=== PATIENT | female | born 1950 | race Caucasian/White ===

== ENCOUNTER 2022-01-16 17:35 | Observation (INO) | payer MEDICARE, BC, SELFPAY ==
--- NOTE | 2022-01-16 | CRLHL7_ITS ---
For Patients: As a result of the Century Cures Act, medical imaging exams and procedure reports are released immediately into your electronic medical record. You may view this report before your referring provider. If you have questions, please contact your health care provider. INDICATION: Trauma, fall. Right hip pain. TECHNIQUE: CT pelvis acquired without contrast. COMPARISON: CT abdomen/pelvis dated 08/19/2021. FINDINGS: Within limitations of osteopenia, there is no acute displaced fracture identified. The right hip joint alignment is anatomic. Bladder: Unremarkable for degree of distension. Reproductive organs: Posthysterectomy. Pelvic lymph nodes: No lymphadenopathy. Vessels: Unremarkable for unenhanced study. Abdominal wall: No acute abdominal wall abnormality. IMPRESSION: : No evidence of acute fracture. Please note that all CT scans at this facility use dose modulation, iterative reconstruction, and/or weight-based dosing when appropriate to reduce radiation dose to as low as reasonably achievable. Dictated by Anish Urban MD @ 01/16/2022 8:10:25 PM (Electronically Signed)
[2022-01-16 17:41] VITALS: BP 152/83; PULSE 81; RESP 20; TEMP 36.8; O2SAT 97
--- NOTE | 2022-01-16 17:58 | CRLHL7_ITS ---
For Patients: As a result of the Cures Act, medical imaging exams and procedure reports are released immediately into your electronic medical record. You may view this report before your referring provider. If you have questions, please contact your health care provider. INDICATION: Trauma, fall. TECHNIQUE: CT lumbar spine without contrast. COMPARISON: CT abdomen/pelvis dated 08/19/2021. FINDINGS: Vertebrae: Stable minimal retrolisthesis of L2 on L3, likely secondary to degenerative changes. Stable scattered bone islands and probable vertebral body hemangioma in L2. Within limits of osteopenia, no acute displaced fracture or traumatic malalignment is identified. Discs and facet joints: Extensive multilevel disc and endplate degenerative changes, stable. Extensive bilateral facet arthropathy. Extraspinal findings: Partially visualized liver cyst. Several punctate nonobstructing left renal calculi, unchanged. IMPRESSION: 1. No evidence of acute displaced fracture or traumatic malalignment. 2. Extensive multilevel degenerative changes. Please note that all CT scans at this facility use dose modulation, iterative reconstruction, and/or weight-based dosing when appropriate to reduce radiation dose to as low as reasonably achievable. Dictated by Anish Urban MD @ 01/16/2022 8:01:21 PM (Electronically Signed)
[2022-01-16] MEDS: OXYCODONE 5 MG TABLET PO (19:27)
--- NOTE | 2022-01-16 20:59 | ED.NURSE ---
Pt to bedpan, did pass ~300ml urine.
[2022-01-16 21:00] VITALS: BP 178/92; PULSE 90; O2SAT 94
--- NOTE | 2022-01-16 21:15 | CRLHL7_ITS ---
For Patients: As a result of the Century Cures Act, medical imaging exams and procedure reports are released immediately into your electronic medical record. You may view this report before your referring provider. If you have questions, please contact your health care provider. INDICATION: Fall TECHNIQUE: CT chest, abdomen and pelvis acquired with 64 cc Isovue 370 IV contrast. COMPARISON: CT abdomen pelvis August 19 FINDINGS: Chest: Cardiovascular structures: Heart size is normal. Thoracic aorta and main pulmonary artery are normal in caliber. Mediastinum and moses: No mass or adenopathy. Fluid in the esophagus up to the level of the thoracic inlet. Calcified lymph nodes in the right hilum. Lungs: 1.6 x 0.9 mass in the right upper lobe containing fat density and small foci of calcium, likely a hamartoma. There is also an adjacent cluster of pulmonary nodules measuring up to 4 mm on image 19 series 7. Pleura and pericardium: No effusions. Chest wall and axilla: No mass or adenopathy. Bones: Unremarkable for age. Abdomen and Pelvis: Liver: 2.2 cm simple cyst in the liver. Spleen: Unremarkable. Pancreas: Unremarkable. Gallbladder and bile ducts: Unremarkable. Adrenal glands: Unremarkable. Kidneys: Few subcentimeter hypodensities in both kidneys, too small to accurately characterize. Nonobstructive left nephrolithiasis measuring up to 4.5 mm. GI tract: Moderate amount of stool within colon. Vascular structures: Aortoiliac calcifications. Lymph nodes: Unremarkable. Miscellaneous: Unremarkable. No free air or significant free fluid. Pelvic Organs: Status post hysterectomy. Bones: Unremarkable for age. IMPRESSION: No evidence for acute injury within the abdomen or pelvis. Right upper lobe pulmonary nodules. 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 The other pulmonary nodules are nonspecific. Neoplasm cannot be excluded. Recommend comparison with any prior Chest CT. If no other prior CT available, recommend follow up per Fleischner society guidelines. Fluid in the esophagus up to the level of thoracic inlet suggest GERD. Nonobstructive left nephrolithiasis. Moderate amount of stool in the colon. Status post hysterectomy. Please note that all CT scans at this facility use dose modulation, iterative reconstruction, and/or weight-based dosing when appropriate to reduce radiation dose to as low as reasonably achievable. Dictated by Krystle Deshpande MD @ 01/16/2022 11:49:53 PM (Electronically Signed)
--- NOTE | 2022-01-16 21:15 | CRLHL7_ITS ---
For Patients: As a result of the Cures Act, medical imaging exams and procedure reports are released immediately into your electronic medical record. You may view this report before your referring provider. If you have questions, please contact your health care provider. INDICATION: Trauma, fall. TECHNIQUE: CT thoracic spine without contrast. COMPARISON: None. FINDINGS: Vertebrae: Alignment is normal. There are no fractures or suspicious bony lesions. Discs and facet joints: Disc spaces and facets are within normal limits. Extraspinal findings: Prevertebral soft tissues, visualized airway, and visualized lungs are unremarkable. IMPRESSION: Unremarkable thoracic spine. No sign of acute injury. Please note that all CT scans at this facility use dose modulation, iterative reconstruction, and/or weight-based dosing when appropriate to reduce radiation dose to as low as reasonably achievable. Dictated by Ronni Palacio MD @ 01/16/2022 11:29:17 PM (Electronically Signed)
--- NOTE | 2022-01-16 21:15 | CRLHL7_ITS ---
For Patients: As a result of the Cures Act, medical imaging exams and procedure reports are released immediately into your electronic medical record. You may view this report before your referring provider. If you have questions, please contact your health care provider. INDICATION: Fall with pain. TECHNIQUE: CT cervical spine without contrast. COMPARISON: None. FINDINGS: Vertebrae: Alignment is normal. There are no fractures or suspicious bony lesions. Discs and facet joints: There are diffuse degenerative changes in the disc spaces and facet joints. Extraspinal findings: Paraspinous soft tissues are unremarkable. IMPRESSION: 1. No sign of acute injury. 2. Multilevel degenerative spondylosis. Please note that all CT scans at this facility use dose modulation, iterative reconstruction, and/or weight-based dosing when appropriate to reduce radiation dose to as low as reasonably achievable. Dictated by Ronni Palacio MD @ 01/16/2022 11:32:51 PM (Electronically Signed)
[2022-01-16] MEDS: HYDROmorphone 0.5 mg/0.5 ml inj IVP (21:39)
[2022-01-16 21:53] VITALS: BP 130/67; PULSE 87; O2SAT 93
[2022-01-16 21:57] LABS: Chloride* 104 mmol/L (96-114); Potassium* 4.1 mmol/L (3.6-5.1); Sodium* 136 mmol/L (135-149)
[2022-01-16 22:00] VITALS: BP 130/67; PULSE 90; RESP 18; O2SAT 93
[2022-01-16 22:00] LABS: Blood Urea Nitrogen* 18 mg/dL (7-30); Calcium* 9.4 mg/dL (8.4-10.6); Carbon Dioxide* 27 mmol/L (20-32); Creatinine* 0.7 mg/dL (0.5-1.5); Estimated Glomerular Filt Rate 92 ml/min; Glucose* 127 mg/dL (60-115)
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
[2022-01-16 23:00] VITALS: BP 132/65; PULSE 85; RESP 18; O2SAT 91
[2022-01-17] VITALS (10 sets, daily range): BP systolic 116–141; BP diastolic 59–101; PULSE 76–102; RESP 16–22; TEMP 36.5–36.9; O2SAT 92–97
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
[2022-01-17 00:01] LABS: Basophils Absolute Auto 0.01 K/uL (0.00-0.30); Basophils Percent Auto 0.2 % (0.0-3.0); Eosinophils Absolute Auto 0.02 K/uL (0.00-0.50); Eosinophils Percent Auto 0.3 % (0.0-7.0); Hematocrit 39.6 % (33.0-51.0); Hemoglobin* 13.9 gm/dL (12.0-16.0); Immature Granulocytes Abs Auto 0.07 K/uL (0.00-0.30); Lymphocytes Percent Auto 11.8 % (20-44); Mean Corpuscular HGB Conc 35 gm/dL (32-36); Mean Corpuscular Hemoglobin 33 pg (26-34); Mean Corpuscular Volume 95 fL (80-100); Monocytes Percent Auto 6.9 % (0.0-11.0); Neutrophils Percent Auto 79.7 % (42.0-72.0); Platelet Count* 187 K/uL (140-440); RDW Coefficient of Variation % 12.5 % (11.5-15.5); Red Blood Count 4.19 m/uL (4.00-5.20); White Blood Count* 6.53 K/uL (4.50-11.00)
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
[2022-01-17 00:05] LABS: Slide Review Reflex No
[2022-01-17 00:21] LABS: Albumin* 3.5 g/dL (3.3-5.0)
[2022-01-17 00:23] LABS: INR 0.99 (0.91-1.10); Prothrombin Time 13.4 Seconds
[2022-01-17 00:24] LABS: Aspartate Amino Transferase* 42 U/L (12-35); Bilirubin Direct* 0.2 mg/dL (0.0-0.5); Bilirubin Total* 0.4 mg/dL (0.1-1.5); Partial Thromboplastin Time* 28 Seconds (23-33); Total Protein* 6.3 g/dL (6.0-8.3)
[2022-01-17 00:25] LABS: Alanine Aminotransferase* 25 U/L (4-35); Alkaline Phosphatase* 118 U/L (40-150)
[2022-01-17 00:46] LABS: SARS PCR* Negative SARS-CoV-2 (Negative)
[2022-01-17] MEDS: HYDROmorphone 0.5 mg/0.5 ml inj IVP ×4 (01:44→18:58)
[2022-01-17] MEDS: OXYCODONE 5 MG TABLET PO ×2 (02:19→15:51)
--- NOTE | 2022-01-17 06:38 | PC.NURSE ---
Shift note: Pt unable to speak and provide information for admission. She replies easily to yes and no questions and attempts to speak in sentences. Pt c/o lower back pain, repositioning and pain meds provided by RN with relief and pt was able to rest overnight. Bed floyd used for toileting
[2022-01-17] MEDS: CALCIUM CARBONATE 500 MG TABLET PO (09:00)
[2022-01-17] MEDS: MULTIVITAMIN/MINERALS 1 TABLET 1 TAB PO (09:00)
[2022-01-17] MEDS: OMEPRAZOLE 20 MG CAPSULE DR 40 MG PO (09:00)
[2022-01-17] MEDS: LEVOTHYROXINE 88 MCG TABLET PO (09:00)
[2022-01-17] MEDS: DONEPEZIL 10 MG TABLET PO (09:00)
[2022-01-17] MEDS: ASPIRIN 81 MG TABLET EC PO (09:00)
[2022-01-17] MEDS: FOLIC ACID 1 MG TABLET PO (09:00)
[2022-01-17] MEDS: polyethylene glycoL 3350 17 GM PACK PO (09:01)
[2022-01-17] MEDS: ONDANSETRON 2 MG/ML inj 4 MG IVP (09:38)
--- NOTE | 2022-01-17 10:54 | PM.IMPN1 ---
Progress Note: A&P Assessment and plan (1) Fall: Status: Acute (2) Back pain: Status: Acute (3) Alzheimer's dementia: Status: Acute Plan Rosey will be admitted for pain control and evaluations by our therapy teams. Her fall was significant, and she may require a rehab stay given comorbidities. We will continue her home medications. Plan -PT, OT, SW consult -suspect she will need placement Full code on lovenox for DVT ppx Subjective Date Seen: 01/17/22 Interval history: patient endorses nausea c/o back pain to come to hospital this afternoon unable to obtain ROS d/t communication barrier Exam Narrative: Exam Narrative: Gen: No acute distress HEENT: NCAT EOMI MMM CV: RRR normal s1 s2 Lungs: CTAB Abd: Soft, nt, nd Neuro: alert, appears in baseline state Const: Vital Signs, click to edit/add: Vital Signs - 24 hr 01/16/22 17:41 01/16/22 21:53 01/16/22 21:00 Temperature 98.2 F Pulse Rate [Left P ulse Oximeter] 81 87 90 Respiratory Rate 20 Blood Pressure [Le ft Radial Artery] Blood Pressure [Le ft Upper Arm] 152/83 H 130/67 178/92 H Pulse Oximetry 97 93 94 Oxygen Delivery Me thod Room Air Room Air Room Air 01/17/22 00:21 01/17/22 02:38 01/17/22 02:00 Temperature 97.7 F 97.7 F Pulse Rate [Left P ulse Oximeter] 102 H 80 80 Respiratory Rate 22 22 Blood Pressure [Le ft Radial Artery] 141/81 H 141/81 H Blood Pressure [Le ft Upper Arm] 134/76 Pulse Oximetry 97 95 95 Oxygen Delivery Me thod Room Air Room Air Room Air 01/16/22 22:00 01/16/22 23:00 01/17/22 00:00 Temperature Pulse Rate [Left P ulse Oximeter] 90 85 86 Respiratory Rate 18 18 18 Blood Pressure [Le ft Radial Artery] Blood Pressure [Le ft Upper Arm] 130/67 132/65 134/76 Pulse Oximetry 93 91 95 Oxygen Delivery Me thod Room Air Room Air Room Air 01/17/22 00:30 Temperature Pulse Rate [Left P ulse Oximeter] 85 Respiratory Rate 18 Blood Pressure [Le ft Radial Artery] Blood Pressure [Le ft Upper Arm] 132/64 Pulse Oximetry 92 Oxygen Delivery Me thod Room Air Labs Labs: Laboratory Results - last 24 hr 01/16/22 01/16/22 01/16/22 00:01 21:38 23:44 WBC 6.53 RBC 4.19 Hgb 13.9 Hct 39.6 MCV 95 MCH 33 MCHC 35 RDW Coeff of Benji 12.5 Plt Count 187 Neut % (Auto) 79.7 H Lymph % (Auto) 11.8 L [place] % (Auto) 6.9 Eos % (Auto) 0.3 Baso % (Auto) 0.2 Neut # (Auto) 5.20 Lymph # (Auto) 0.80 L [place] # (Auto) 0.50 Eos # (Auto) 0.02 Baso # (Auto) 0.01 Abs Immat Gran (auto) 0.07 INR APTT Sodium 136 Potassium 4.1 Chloride 104 Carbon Dioxide 27 BUN 18 Creatinine 0.7 Estimated GFR 92 Glucose 127 H Calcium 9.4 Total Bilirubin Direct Bilirubin AST ALT Alkaline Phosphatase Total Protein Albumin SARS-CoV-2 (PCR) Negative SARS-CoV-2 01/16/22 01/16/22 23:44 23:44 WBC RBC Hgb Hct MCV MCH MCHC RDW Coeff of Benji Plt Count Neut % (Auto) Lymph % (Auto) [place] % (Auto) Eos % (Auto) Baso % (Auto) Neut # (Auto) Lymph # (Auto) [place] # (Auto) Eos # (Auto) Baso # (Auto) Abs Immat Gran (auto) INR 0.99 APTT 28 Sodium Potassium Chloride Carbon Dioxide BUN Creatinine Estimated GFR Glucose Calcium Total Bilirubin 0.4 Direct Bilirubin 0.2 AST 42 H ALT 25 Alkaline Phosphatase 118 Total Protein 6.3 Albumin 3.5 SARS-CoV-2 (PCR)
[2022-01-17] MEDS: AMLODIPINE 5 MG TABLET 2.5 MG PO (12:21)
[2022-01-17] MEDS: FLUTICASONE PROPIONATE NASAL 1 SPRAY NOSTRIL-B ×2 (12:21→21:03)
--- NOTE | 2022-01-17 14:44 | PC.NURSE ---
PATIENT'S VSS AND AFEBRILE. PATIENT PLEASANT AND COOPERATIVE. HAS BASELINE EXPRESSIVE DIFFICULTIES. SPEECH IS GARBLED AND DELAYED. PATIENT DOES REPORT RIGHT RIB CAGE, RIGHT BACK AND BILATERAL HIP PAIN. PAIN IMPROVED WITH PAIN MEDS AND REST. PAIN WORSENS WITH POSITION CHANGES. PATIENT REPOSITIONED IN BED AND USING BEDPAN.
[2022-01-17] MEDS: ACETAMINOPHEN 325 MG TABLET 975 MG PO (18:17)
[2022-01-17] MEDS: ENOXAPARIN 40 MG/0.4 ML INJ SUBCUT (21:03)
--- NOTE | 2022-01-17 22:20 | PC.NURSE ---
Shift [id number]- Patient has signs of pain with position changes- and agrees that she is in pain- PRN pain medications given as well as ice pack and patient states relief. She also denies needing further pain medication at this time. She is turned and repositioned with pillows for offloading as tolerated. Family at bedside tonight and supportive- helping her eat and do PM cares. She uses bedpan to void. Her speech is slow and somewhat difficult to understand, but she is able to make her needs known.
[2022-01-18] VITALS (8 sets, daily range): BP systolic 112–156; BP diastolic 67–87; PULSE 75–94; RESP 16–20; TEMP 36.4–37.1; O2SAT 92–96
[2022-01-18 06:45] LABS: Eosinophils Percent Auto 3.6 % (0.0-7.0); Hematocrit 39.6 % (33.0-51.0); Hemoglobin* 13.7 gm/dL (12.0-16.0); Mean Corpuscular HGB Conc 35 gm/dL (32-36); Mean Corpuscular Hemoglobin 33 pg (26-34); Mean Corpuscular Volume 95 fL (80-100); Monocytes Percent Auto 7.5 % (0.0-11.0); Neutrophils Percent Auto 53.1 % (42.0-72.0); Platelet Count* 211 K/uL (140-440); RDW Coefficient of Variation % 12.8 % (11.5-15.5); Red Blood Count 4.15 m/uL (4.00-5.20); White Blood Count* 4.66 K/uL (4.50-11.00)
[2022-01-18 06:46] LABS: Basophils Absolute Auto 0.02 K/uL (0.00-0.30); Basophils Percent Auto 0.4 % (0.0-3.0); Eosinophils Absolute Auto 0.17 K/uL (0.00-0.50); Immature Granulocytes Abs Auto 0.02 K/uL (0.00-0.30); Lymphocytes Absolute Auto 1.63 K/uL (0.90-2.90); Neutrophils Absolute Auto 2.47 K/uL (1.7-7.0)
[2022-01-18 06:50] LABS: Slide Review Reflex No
[2022-01-18 06:52] LABS: Chloride* 104 mmol/L (96-114); Potassium* 3.9 mmol/L (3.6-5.1); Sodium* 134 mmol/L (135-149)
[2022-01-18 06:55] LABS: Blood Urea Nitrogen* 17 mg/dL (7-30); Carbon Dioxide* 25 mmol/L (20-32); Creatinine* 0.6 mg/dL (0.5-1.5); Estimated Glomerular Filt Rate 95 ml/min
[2022-01-18 06:56] LABS: Calcium* 9.2 mg/dL (8.4-10.6); Glucose* 85 mg/dL (60-115)
--- NOTE | 2022-01-18 07:44 | PC.NURSE ---
Shift note: Very difficult to understand the patient due to the impaired speech. The pt has been saying her pain has been tolerable; Declined pain medication stating the pain was not bothersome. She has been using bedpan to urinated. She denied any chest pain and short of breath.
[2022-01-18] MEDS: LEVOTHYROXINE 88 MCG TABLET PO (08:12)
[2022-01-18] MEDS: ACETAMINOPHEN 325 MG TABLET 975 MG PO ×2 (08:12→20:14)
[2022-01-18] MEDS: OXYCODONE 5 MG TABLET PO ×4 (08:12→20:15)
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
[2022-01-18] MEDS: OMEPRAZOLE 20 MG CAPSULE DR 40 MG PO (09:34)
[2022-01-18] MEDS: FOLIC ACID 1 MG TABLET PO (09:35)
[2022-01-18] MEDS: ASPIRIN 81 MG TABLET EC PO (09:35)
[2022-01-18] MEDS: AMLODIPINE 5 MG TABLET 2.5 MG PO (09:35)
[2022-01-18] MEDS: CALCIUM CARBONATE 500 MG TABLET PO ×2 (09:35→17:49)
[2022-01-18] MEDS: MULTIVITAMIN/MINERALS 1 TABLET 1 TAB PO (09:35)
[2022-01-18] MEDS: polyethylene glycoL 3350 17 GM PACK PO (09:36)
[2022-01-18] MEDS: DONEPEZIL 10 MG TABLET PO (09:36)
[2022-01-18] MEDS: FLUTICASONE PROPIONATE NASAL 1 SPRAY NOSTRIL-B ×2 (09:45→20:51)
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
--- NOTE | 2022-01-18 17:31 | PC.NURSE ---
SHIFT REPORT: PATIENT PLEASANT AND COOPERATIVE, APPEARS ALERT AND ORIENTED ALTHOUGH SPEECH IS GARBLED, PATIENT IS ABLE TO COMMUNICATE NEEDS AND MAKE NEEDS KNOWN, ABLE TO FEED SELF THIS MORNING AND GET HERSELF WATER OUT OF HER HOME DRINKING CUP, TOLERATED MRI THIS MORNING, RATING PAIN IN BACK 5/10 BEING MANAGED WITH PRN OXYCODONE TOLERATING WELL, UP WITH CEILING LIFT THIS AFTERNOON, WAS ABLE TO TOLERATE BEING THE CHAIR FOR 30 MINUTES, SITTING UP INCREASES PATIENT BACK PAIN, PRESENT THIS AFTERNOON AND VERY SUPPORTIVE, PATIENT DID EXPRESS I THINK ILL NEED A [facility], I THINK ILL BE TOO MUCH FOR MY TO TAKE CARE OF, PATIENT DID EXPRESS THIS TO HER .
[2022-01-18] MEDS: ENOXAPARIN 40 MG/0.4 ML INJ SUBCUT (20:48)
[2022-01-18] MEDS: CALCITONIN SALMON NASAL SPRAY 200 UNIT 1 SPRAY NOSTRIL-B (20:52)
[2022-01-19] MEDS: OXYCODONE 5 MG TABLET PO ×4 (00:53→23:15)
[2022-01-19 02:41] VITALS: BP 139/73; PULSE 84; RESP 18; TEMP 36.4; O2SAT 94
[2022-01-19] MEDS: HYDROmorphone 0.5 mg/0.5 ml inj IVP (03:19)
[2022-01-19] MEDS: LEVOTHYROXINE 88 MCG TABLET PO (06:34)
[2022-01-19 07:00] VITALS: BP 144/82; PULSE 81; RESP 18; TEMP 37; O2SAT 97
--- NOTE | 2022-01-19 07:26 | PC.NURSE ---
END OF SHIFT NOTE: PT WITH SEVERE SPEECH IMPEDIMENT D/T ALZHEIMER'S DEMENTIA. PT DOES HAVE SHEET WITH ALPHABET ON BEDSIDE TABLE TO SPELL OUT WORDS IF NEEDED FOR COMMUNICATION. PT LOWER BACK PAIN 6/10 WITH RELIEF FROM ADMINISTRATION OF PRN OXYCODONE AND DILAUDID. FINE CRACKLES NOTES TO ANTERIOR LUNGS. RIGHT ELBOW MEPILEX CDI. PT COUGHED WHILE TAKING SMALL ORAL PILL THIS MORNING WITH SIP OF WATER. PT USED CALL LIGHT APPROPRIATELY. UTILIZED BED STEWART TO VOID (VOIDED LARGE AMOUNTS).
[2022-01-19] MEDS: ACETAMINOPHEN 325 MG TABLET 975 MG PO (09:14)
[2022-01-19] MEDS: AMLODIPINE 5 MG TABLET 2.5 MG PO (09:14)
[2022-01-19] MEDS: DONEPEZIL 10 MG TABLET PO (09:14)
[2022-01-19] MEDS: LIDOCAINE 5% PATCH 1 PATCH TRANSDERMA (09:15)
[2022-01-19] MEDS: polyethylene glycoL 3350 17 GM PACK PO (09:15)
[2022-01-19] MEDS: MULTIVITAMIN/MINERALS 1 TABLET 1 TAB PO (09:15)
[2022-01-19] MEDS: OMEPRAZOLE 20 MG CAPSULE DR 40 MG PO (09:16)
[2022-01-19] MEDS: CALCIUM CARBONATE 500 MG TABLET PO ×2 (09:16→17:12)
[2022-01-19] MEDS: ASPIRIN 81 MG TABLET EC PO (09:16)
[2022-01-19] MEDS: FOLIC ACID 1 MG TABLET PO (09:16)
[2022-01-19] MEDS: FLUTICASONE PROPIONATE NASAL 1 SPRAY NOSTRIL-B ×2 (09:17→21:26)
[2022-01-19 11:00] VITALS: BP 147/86; PULSE 98; RESP 18; TEMP 36.6; O2SAT 98
--- NOTE | 2022-01-19 14:03 | PC.SOCIAL ---
Pt. is in agreement she needs a SNF. Spoke with pt.'s spouse Naren @ [phone] who states he and pt. would prefer placement in [facility] as pt.'s brother and sister live in [facility], then [facility]. The [facility] has no beds, the [facility] has an opening but pt. would need to pay privately since pt. is in observation, and [address] [place] [address] has a bed and is assessing. The [facility] has no short-term rehab beds.
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
[2022-01-19 15:00] VITALS: BP 139/74; PULSE 85; RESP 18; TEMP 36.9; O2SAT 96
--- NOTE | 2022-01-19 15:58 | PC.SOCIAL ---
Pt. has been accepted to [facility] for short-term rehab. Pt.'s spouse Naren will arrive around 10:30am to transport. He will bring in her wheelchair and transfer pt in their handicap accessible van.
--- NOTE | 2022-01-19 16:31 | PC.NURSE ---
PATIENT PLEASANT AND COOPERATIVE, TURN AND REPO Q2H, PATIENT TOLERATING WELL, DOES EXPRESS INCREASED PAIN WITH MOVEMENT IN BACK, LIDOCAINE PATCH TO MEDICAL BACK AND PRN OXYCODONE WITH RELIEF, PATIENT CONTINUES TO HAVE INTENSE PAIN WITH WITH SITTING UP, USING BEDPAN AND HAS BEEN CONTINENT THROUGHOUT SHIFT, TOLERATING REGULAR DIET FAIRY PATIENT EDUCATED ON THE IMPORTANCE OF EATING, DRESSING TO RIGHT ELBOW INTACT, TAKING PILLS WHOLE ONE AT A TIME WITH WATER, SPEECH REMAINS GARBLED/MUMBLED AT TIMES IS HARD TO UNDERSTAND, PATIENT ABLE TO COMMUNICATE NEEDS WITH ABC BOARD AND WITHOUT.
[2022-01-19 19:00] VITALS: BP 159/90; PULSE 90; RESP 18; TEMP 36.8; O2SAT 97
[2022-01-19] MEDS: ENOXAPARIN 40 MG/0.4 ML INJ SUBCUT (21:25)
[2022-01-19] MEDS: CALCITONIN SALMON NASAL SPRAY 200 UNIT 1 SPRAY NOSTRIL-B (21:26)
[2022-01-19 23:00] VITALS: BP 129/77; PULSE 88; RESP 18; TEMP 36.6; O2SAT 98
[2022-01-20 03:00] VITALS: BP 102/59; PULSE 78; RESP 18; TEMP 37; O2SAT 97
[2022-01-20] MEDS: OXYCODONE 5 MG TABLET PO ×2 (06:06→10:07)
[2022-01-20] MEDS: LEVOTHYROXINE 88 MCG TABLET PO (06:06)
[2022-01-20 07:00] VITALS: BP 117/93; PULSE 90; RESP 20; TEMP 36.3; O2SAT 97
[2022-01-20 07:09] LABS: Hemoglobin* 14.3 gm/dL (12.0-16.0)
[2022-01-20 07:23] LABS: Sodium* 135 mmol/L (135-149)
[2022-01-20] MEDS: LIDOCAINE 5% PATCH 1 PATCH TRANSDERMA (08:58)
[2022-01-20] MEDS: CALCIUM CARBONATE 500 MG TABLET PO (08:58)
[2022-01-20] MEDS: ASPIRIN 81 MG TABLET EC PO (08:59)
[2022-01-20] MEDS: polyethylene glycoL 3350 17 GM PACK PO (08:59)
[2022-01-20] MEDS: MULTIVITAMIN/MINERALS 1 TABLET 1 TAB PO (08:59)
[2022-01-20] MEDS: OMEPRAZOLE 20 MG CAPSULE DR 40 MG PO (08:59)
[2022-01-20] MEDS: AMLODIPINE 5 MG TABLET 2.5 MG PO (08:59)
[2022-01-20] MEDS: DONEPEZIL 10 MG TABLET PO (08:59)
[2022-01-20] MEDS: FOLIC ACID 1 MG TABLET PO (08:59)
[2022-01-20] MEDS: FLUTICASONE PROPIONATE NASAL 1 SPRAY NOSTRIL-B (09:03)
[2022-01-20 09:15] VITALS: BP 117/93; PULSE 90; RESP 20; TEMP 36.3
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
== END 2022-01-20 12:12 ==
LOC: ED 23:49 → MEDSURG 01-17 01:19
PROVIDERS: Hospitalist; Internal Medicine; Admitting Provider Family Medicine; Emergency Provider Emergency Medicine; Visit Provider Family Medicine
DX: S32.010A Wedge compression fracture of first lumbar vertebra, initial encounter for closed fracture (principal); S32.040A Wedge compression fracture of fourth lumbar vertebra, initial encounter for closed fracture; M54.50 Low back pain, unspecified; G30.9 Alzheimer's disease, unspecified; F02.80 Dementia in other diseases classified elsewhere, unspecified severity, without behavioral disturbance, psychotic disturbance, mood disturbance, and anxiety; W19.XXXA Unspecified fall, initial encounter; V00.811A Fall from moving wheelchair (powered), initial encounter; Y92.410 Unspecified street and highway as the place of occurrence of the external cause; M85.80 Other specified disorders of bone density and structure, unspecified site; R68.89 Other general symptoms and signs; R47.1 Dysarthria and anarthria; E03.9 Hypothyroidism, unspecified; M06.9 Rheumatoid arthritis, unspecified; R47.01 Aphasia; Z74.09 Other reduced mobility; R26.2 Difficulty in walking, not elsewhere classified; Z79.82 Long term (current) use of aspirin; R91.8 Other nonspecific abnormal finding of lung field; R47.89 Other speech disturbances; Z98.890 Other specified postprocedural states; Z90.49 Acquired absence of other specified parts of digestive tract; Z90.710 Acquired absence of both cervix and uterus
CPT/HCPCS: 36415; 71260; 72125; 72128; 72131; 72148; 72192; 74177; 80048; 80076; 84295; 85018; 85025; 85610; 85730; 87635; 96372; 96374; 96376; 97110; 97162; 97166; 97530; 97535; 99284; 99285; A9153; A9270; G0378; G0379; J1170; J1650; J2405; Q9967

== ENCOUNTER 2022-01-20 11:40 | Outpatient (CLI) | payer MEDICARE, BC, SELFPAY | END 2022-01-20 11:41 | disposition home or self-care (01) | LOC: AMB 02-02 08:10 | PROVIDERS: Visit Provider Family Medicine | DX: S29.9XXA Unspecified injury of thorax, initial encounter (principal); W07.XXXA Fall from chair, initial encounter; Y92.414 Local residential or business street as the place of occurrence of the external cause | CPT/HCPCS: A0425; A0428 ==

== ENCOUNTER 2023-01-23 19:51 | Emergency (ER) | payer MEDICARE, BC, SELFPAY ==
[2023-01-23 20:03] VITALS: BP 169/98; PULSE 84; RESP 16; TEMP 36.6; O2SAT 98
--- NOTE | 2023-01-23 20:48 | ED.NURSE ---
Spoke with Deputy Piña regarding dog bite. Deputy Piña gave this ad copy writer his number with instructions for the patient's family to contact him. Number given to patient's family member present in the room at this time.
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
[2023-01-23] MEDS: TETANUS/DIPHTH/PERTUSSIS 0.5 ML SYRINGE IM (21:09)
[2023-01-23] MEDS: RABIES IMMUNE GLOBULIN 150 UNIT/ML INJ 1275 UNIT INFILTRATI (21:52)
== END 2023-01-23 21:53 | disposition home or self-care (01) ==
PROVIDERS: Emergency Provider Emergency Medicine Emergency Medical Services
DX: S51.852A Open bite of left forearm, initial encounter (principal); W54.0XXA Bitten by dog, initial encounter; Z23 Encounter for immunization
CPT/HCPCS: 12002; 90377; 90471; 90472; 90675; 90715; 99283; 99284

== ENCOUNTER → 2023-02-06 13:45 | Outpatient (RCR) | payer MEDICARE, BC, SELFPAY ==
[2023-01-26 15:26] VITALS: BP 153/86; PULSE 76; RESP 14; TEMP 36.1; O2SAT 97
--- NOTE | 2023-01-26 15:32 | ED.NURSE ---
Outpatient rabies vaccine administered in L deltoid. Pt tolerated well. VSS.
[2023-01-30 15:34] VITALS: BP 153/81; PULSE 87; RESP 14; TEMP 36.8; O2SAT 99
--- NOTE | 2023-01-30 15:36 | ED.NURSE ---
Rabies vaccine administered in R deltoid. VSS. Pt tolerated well. Pt family reports discharge from wound/stitches, decline to be seen in ED. Family states they will follow up tomorrow with PCP.
[2023-02-06 15:53] VITALS: BP 163/85; PULSE 73; RESP 18; TEMP 36.3; O2SAT 97
== END | disposition home or self-care (01) ==
LOC: OP CLINIC 01-26 15:12
PROVIDERS: Visit Provider Emergency Medicine Emergency Medical Services
DX: Z20.3 Contact with and (suspected) exposure to rabies (principal); Z23 Encounter for immunization
CPT/HCPCS: 80307; 90471; 90675

== ENCOUNTER 2023-02-19 10:49 | Emergency (ER) | payer MEDICARE, BC, SELFPAY ==
[2023-02-19] VITALS (8 sets, daily range): BP systolic 143–145; BP diastolic 65–78; PULSE 81–89; RESP 16; TEMP 37.4; O2SAT 96–97; BMI 23.2
--- NOTE | 2023-02-19 11:28 | ED.GENADULT ---
HPI - General Adult General Chief complaint: Unspecified Complaint, Adult Stated complaint: Ill Time Seen by Provider: 02/19/23 11:10 History of Present Illness HPI narrative: This 72-year-old female comes in with her . She is nonverbal with expressive aphasia syndrome. She also has history of rheumatoid arthritis. Her states that she is had increased pain since yesterday. It is not clear to him where she is feeling pain but he reports that she screamed out in pain last night when he was assisting to transfer her into bed. Again this morning when getting out of bed to her chair she showed signs of pain. She is not indicating any specific area of pain. There was no recent injury event. Her states that she fell about a year ago and had a fracture of her lumbar spine. She typically takes Tylenol and tramadol and is on methotrexate. She did not get her pain medicines this morning. When at rest she does not appear to be in discomfort. Related Data Home Medications Medication Instructions Recorded Confirmed aspirin 81 mg tablet,delayed 81 mg PO DAILY 01/16/22 01/16/22 release calcium carbonate 500 mg calcium 500 mg PO DAILY 01/16/22 01/16/22 (1,250 mg) tablet donepezil 10 mg tablet 10 mg PO DAILY 01/16/22 01/17/22 fluticasone propionate 50 1 spray intranasal Q12H 01/16/22 01/17/22 mcg/actuation nasal spray,suspension folic acid 1 mg tablet 1 mg PO DAILY 01/16/22 01/17/22 levothyroxine 88 mcg tablet 88 mcg PO DAILY 01/16/22 01/23/23 methotrexate sodium 2.5 mg tablet 12.5 mg PO .weekly 01/16/22 01/17/22 multivitamin (Daily Multi-Vitamin 1 tab PO DAILY 01/16/22 01/16/22 tablet) omeprazole 40 mg capsule,delayed 40 mg PO DAILY 01/16/22 01/23/23 release polyethylene glycol 3350 17 17 g PO DAILY 01/16/22 01/16/22 gram/dose oral powder (Miralax) amlodipine 2.5 mg tablet 2.5 mg PO DAILY 01/17/22 01/17/22 tramadol 50 mg tablet 50 mg PO Q8H PRN 01/23/23 01/23/23 Previous Rx's Medication Instructions Recorded calcitonin (salmon) 200 1 spray intranasal HS #3.7 mL 01/20/22 unit/actuation nasal spray oxycodone 5 mg tablet 5 mg PO Q4H PRN #42 tabs 01/20/22 sennosides 8.6 mg capsule (senna) 8.6 mg PO BID PRN constipation #60 01/20/22 caps amoxicillin 875 mg-potassium 1 tab PO BID 7 days #14 tabs 09/22/22 clavulanate 125 mg tablet azithromycin 250 mg tablet 250 mg PO DIRECTED #6 tabs 09/22/22 methylprednisolone 4 mg tablets in See Rx Instructions PO .COMPLEX 02/19/23 a dose pack (Medrol (Kamilah)) #21 ea Allergies Allergy/AdvReac Type Severity Reaction Status Date / Time No Known Allergies Allergy Verified 09/22/22 15:54 Review of Systems Status of ROS: Reports: unobtainable due to mental status Narrative: Unable to obtain due to expressive aphasia. [facility] Medical History Dysarthria ?R47.1 - Dysarthria and anarthria (ICD-10) Expressive aphasia syndrome ?R47.01 - Aphasia (ICD-10) Unable to perform basic transfer without assistance ?R68.89 - Other general symptoms and signs (ICD-10) Unable to ambulate ?R26.2 - Difficulty in walking, not elsewhere classified (ICD-10) Confined to chair ?Z74.09 - Other reduced mobility (ICD-10) Alzheimer's dementia ?G30.9 - Alzheimer's disease, unspecified (ICD-10) ?F02.80 - Dementia in other diseases classified elsewhere without behavioral disturbance (ICD-10) Essential hypertension ?I10 - Essential (primary) hypertension (ICD-10) Osteopenia ?M85.80 - Other specified disorders of bone density and structure, unspecified site (ICD-10) Sicca syndrome ?M35.00 - Sjogren syndrome, unspecified (ICD-10) Osteoarthritis ?M19.90 - Unspecified osteoarthritis, unspecified site (ICD-10) Hypothyroidism ?E03.9 - Hypothyroidism, unspecified (ICD-10) Goiter colloid, toxic, 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 - Thyrotoxicosis with toxic multinodular goiter without thyrotoxic crisis or storm (ICD-10) Back pain ?M54.9 - Dorsalgia, unspecified (ICD-10) Rheumatoid arthritis ?M06.9 - Rheumatoid arthritis, unspecified (ICD-10) Dementia ?F03.90 - Unspecified dementia without behavioral disturbance (ICD-10) Surgical History History of appendectomy ?Z90.49 - Acquired absence of other specified parts of digestive tract (ICD-10) H/O: hysterectomy ?Z90.710 - Acquired absence of both cervix and uterus (ICD-10) H/O: hysterectomy ?Z90.710 - Acquired absence of both cervix and uterus (ICD-10) Social History Smoking Status: Never smoker Do you use any of these nicotine containing products: None Second hand tobacco smoke exposure: No How often do you have a drink containing alcohol: never How often do you have six or more drinks on one occasion: Never AUDIT-C Alcohol total score: 0 Non-prescribed substance use: denies use service: No Exam Narrative: Exam Narrative: Constitutional: Well-developed, well-nourished, no acute distress. HEENT: Normocephalic, atraumatic. Dry mouth. Neck: Normal range of motion. Nontender. Supple. Heart: Regular. No murmurs. Normal rate. Intact distal pulses. Lungs: Clear to auscultation. No chest discomfort. No wheezes, rhonchi, or rales. Abdomen: Normal bowel sounds. Nontender. No rebound tenderness. I am able to palpate deeply into her abdomen without discomfort. Genitalia: Deferred. Back: No midline tenderness. Normal range of motion. Extremities: Normal range of motion. No injury. Swelling and ulnar deviation of the joints in her hands due to rheumatoid arthritis. Skin: Intact. No rash. Warm. No erythema or pallor. Neurologic: No altered sensation. No weakness. Alert. Nursing notes and vitals signs are reviewed. Const: Vital Signs, click to edit/add: Vital Signs - 24 hr 02/19/23 10:57 Temperature 99.4 F Pulse Rate [Pulse Oximeter] 89 Respiratory Rate 16 Blood Pressure [Ri ght Upper Arm] 145/78 H Course Vital Signs Vital signs: Initial Vital Signs Temperature 99.4 F 02/19/23 10:57 Temperature Source Temporal Artery Scan 02/19/23 10:57 Pulse Rate 89 02/19/23 10:57 Respiratory Rate 16 02/19/23 10:57 Blood Pressure 145/78 H 02/19/23 10:57 Blood Pressure Mean 100 02/19/23 10:57 Vital Signs Temperature 99.4 F 02/19/23 10:57 Pulse Rate 89 02/19/23 10:57 Respiratory Rate 16 02/19/23 10:57 Blood Pressure 145/78 H 02/19/23 10:57 Temperature 99.4 F 02/19/23 10:57 Pulse Rate 89 02/19/23 10:57 Respiratory Rate 16 02/19/23 10:57 Blood Pressure 145/78 H 02/19/23 10:57 Medical Decision Making MDM Narrative Medical decision making narrative: This patient comes in by ambulance because of pain last night and this morning that occurred when trying to transition between bed in her chair. The patient has history of rheumatoid arthritis and is no longer taking methotrexate or any other medicine to manage her rheumatoid arthritis. On exam there is no findings of point tenderness or suspicion for cause for her pain. She did have a fracture which was perhaps a compression fracture of her lumbar spine about a year ago. There is no recent injury event to explain her current pain. An IV was established and the patient did receive 15 mg of Toradol intravenously and a L of normal saline. When at rest she is in no acute distress and not describing any findings suspicious for pain. Lab results today returned with normal findings. Her C-reactive protein is a bit elevated at 3.5. Perhaps she is having some flare-up of her rheumatoid arthritis as she is currently not on any medicine to control this autoimmune condition. The patient did receive an IV dose of Solu-Medrol 125 mg and a prescription for Medrol Dosepak. She is okay to be discharged home. She has regular dosings of tramadol and Tylenol that she takes for pain and will be able to continue these medicines as prescribed. Lab Data Labs: Lab Results 02/19/23 Range/Units 11:52 WBC 5.99 (4.50-11.00) K/uL RBC 4.81 (4.00-5.20) m/uL Hgb 15.2 (12.0-16.0) gm/dL Hct 45.6 (33.0-51.0) % MCV 95 (80-100) fL MCH 32 (26-34) pg MCHC 33 (32-36) gm/dL RDW Coeff of Benji 12.0 (11.5-15.5) % Plt Count 199 (140-440) K/uL Neut % (Auto) 76.5 H (42.0-72.0) % Lymph % (Auto) 15.0 L (20-44) % [place] % (Auto) 5.8 (0.0-11.0) % Eos % (Auto) 2.2 (0.0-7.0) % Baso % (Auto) 0.3 (0.0-3.0) % Neut # (Auto) 4.60 (1.7-7.0) K/uL Lymph # (Auto) 0.90 (0.90-2.90) K/uL [place] # (Auto) 0.30 (0.00-0.90) K/UL Eos # (Auto) 0.13 (0.00-0.50) K/uL Baso # (Auto) 0.02 (0.00-0.30) K/uL Abs Immat Gran (auto) 0.01 (0.00-0.30) K/uL Imm/Tot Granulo (auto) 0.2 % Sodium 139 (135-149) mmol/L Potassium 4.3 (3.6-5.1) mmol/L Chloride 106 (96-114) mmol/L Carbon Dioxide 27 (20-32) mmol/L Anion Gap 6 L (7-15) mEq/L BUN 20 (7-30) mg/dL Creatinine 0.5 (0.5-1.5) mg/dL Estimated Creat Clear 43.27 Estimated GFR 99 ml/min Glucose 82 (60-115) mg/dL Calcium 9.2 (8.4-10.6) mg/dL C-Reactive Protein 3.5 H (0.5-1.0) mg/dL Discharge Plan Discharge Clinical Impression: Alzheimer's dementia, Rheumatoid arthritis, Expressive aphasia syndrome Patient Disposition: Home w/ Parent or Adult Condition: Stable Additional Instructions: Take medication as prescribed. Follow up with MD for ongoing management. Return if worsening. Prescriptions: New methylprednisolone [Medrol (Kamilah)] 4 mg tablets,dose pack See Rx Instructions .ROUTE .COMPLEX Qty: 21 0RF Rx Instructions: orally per package directions No Action tramadol 50 mg tablet 50 mg PO Q8H PRN donepezil 10 mg tablet 10 mg PO DAILY Patient Comments: TAKE ONE-HALF TABLET BY MOUTH EVERY DAY , INCREASE TO A FULL TABLET AFTER ONE MONTH. omeprazole 40 mg capsule,delayed release(DR/EC) 40 mg PO DAILY Patient Comments: TAKE ONE CAPSULE BY MOUTH EVERY DAY levothyroxine 88 mcg tablet 88 mcg PO DAILY Patient Comments: TAKE ONE TABLET BY MOUTH EVERY DAY methotrexate sodium 2.5 mg tablet 12.5 mg PO .weekly Patient Comments: TAKE FIVE TABLETS BY MOUTH ONCE EVERY WEEK Rx Instructions: TUESDAY folic acid 1 mg tablet 1 mg PO DAILY Patient Comments: TAKE ONE TABLET BY MOUTH DAILY fluticasone propionate 50 mcg/actuation spray,suspension 1 spray INTRANASAL Q12H Patient Comments: INSTILL TWO SPRAYS INTO BOTH NOSTRILS ONCE DAILY calcium carbonate 500 mg calcium (1,250 mg) tablet 500 mg PO DAILY multivitamin [Daily Multi-Vitamin] Tablet 1 tab PO DAILY aspirin 81 mg tablet,delayed release (DR/EC) 81 mg PO DAILY polyethylene glycol 3350 [Miralax] 17 gram/dose powder 17 g PO DAILY amlodipine 2.5 mg tablet 2.5 mg PO DAILY Patient Comments: TAKE ONE TABLET BY MOUTH EVERY DAY calcitonin (salmon) 200 unit/actuation [place],Non-Aerosol 1 spray intranasal HS Qty: 3.7 0RF oxycodone 5 mg Tablet 5 mg PO Q4H PRNQty: 42 0RF senna 8.6 mg capsule 8.6 mg PO BID PRN (Reason: constipation) Qty: 60 0RF amoxicillin-pot clavulanate 875-125 mg tablet 1 tab PO BID 7 Days Qty: 14 0RF azithromycin 250 mg tablet 250 mg PO DIRECTED Qty: 6 0RF Taper: Z-KAMILAH 500 mg Q24H for 1 Day and 0 Hour 250 mg Q24H for 4 Days and 0 Hour Rx Instructions: For 250 mg dose pack: take 500 mg today (day 1), then 250 mg for 4 days (days 2-5) Follow Up/Referrals: Provider,Not a Local [Primary Care Provider] - Stand Alone Forms: [employer] Info Instructions
[2023-02-19] MEDS: 0.9 % SODIUM CHLORIDE 1000 ml 1,000 ML IV (12:00)
[2023-02-19] MEDS: KETOROLAC 15 MG/ML inj IVP (12:01)
[2023-02-19 12:02] LABS: Basophils Absolute Auto 0.02 K/uL (0.00-0.30); Basophils Percent Auto 0.3 % (0.0-3.0); Eosinophils Absolute Auto 0.13 K/uL (0.00-0.50); Eosinophils Percent Auto 2.2 % (0.0-7.0); Hematocrit 45.6 % (33.0-51.0); Hemoglobin* 15.2 gm/dL (12.0-16.0); Immature Granulocytes Abs Auto 0.01 K/uL (0.00-0.30); Immature Granulocytes Pct Auto 0.2 %; Mean Corpuscular HGB Conc 33 gm/dL (32-36); Mean Corpuscular Hemoglobin 32 pg (26-34); Mean Corpuscular Volume 95 fL (80-100); Monocytes Percent Auto 5.8 % (0.0-11.0); Neutrophils Percent Auto 76.5 % (42.0-72.0); Platelet Count* 199 K/uL (140-440); Red Blood Count 4.81 m/uL (4.00-5.20); White Blood Count* 5.99 K/uL (4.50-11.00)
[2023-02-19 12:05] LABS: Slide Review Reflex No
[2023-02-19 12:16] LABS: Chloride* 106 mmol/L (96-114)
[2023-02-19 12:17] LABS: Potassium* 4.3 mmol/L (3.6-5.1); Sodium* 139 mmol/L (135-149)
[2023-02-19 12:19] LABS: Creatinine* 0.5 mg/dL (0.5-1.5); Est. Creatinine Clearance* 43.27; Estimated Glomerular Filt Rate 99 ml/min
[2023-02-19 12:20] LABS: Anion Gap 6 mEq/L (7-15); Blood Urea Nitrogen* 20 mg/dL (7-30); Calcium* 9.2 mg/dL (8.4-10.6); Carbon Dioxide* 27 mmol/L (20-32); Glucose* 82 mg/dL (60-115)
[2023-02-19 12:23] LABS: C Reactive Protein* 3.5 mg/dL (0.5-1.0)
[2023-02-19] MEDS: METHYLPREDNISOLONE SOD SUCC 62.5 MG/ML (125) 125 MG IVP (12:48)
--- NOTE | 2023-02-19 14:37 | ED.NURSE ---
Patient has been ready for discharge for past hour. Awaiting her husbands return who went home to get wheelchair for transporting patient home.
== END 2023-02-19 17:41 | disposition home or self-care (01) ==
PROVIDERS: Emergency Provider Emergency Medicine Emergency Medical Services
DX: G30.9 Alzheimer's disease, unspecified (principal); F02.80 Dementia in other diseases classified elsewhere, unspecified severity, without behavioral disturbance, psychotic disturbance, mood disturbance, and anxiety; M06.9 Rheumatoid arthritis, unspecified; R47.01 Aphasia
CPT/HCPCS: 36415; 80048; 85025; 86140; 96361; 96374; 96375; 99284; J1885; J2930; J7030